=== PATIENT | male | born 1980 | race Caucasian/White ===

== ENCOUNTER 2017-10-23 19:12 | Emergency (ER) | payer OTHER ==
[~2017-10-23] VITALS: Ht 170.2 cm; Wt 49.6 kg
[~2017-10-23 19:12] MED LIST: SITA1TBM4 PO
[2017-10-23 20:25] LABS: HEMATOCRIT 46.8 % (39.2-51.8); HEMOGLOBIN 15.6 g/dL (13.7-18.0); WHITE BLOOD COUNT 8.1 x10^3/uL (3.4-10)
[2017-10-23 20:26] LABS: PH, VENOUS 7.427 pH (7.320-7.420)
[2017-10-23] MEDS ORDERED: SODIUM CHLORIDE 0.9% 1,000ML IVBOLUS ONE (20:30)
[2017-10-23 20:37] LABS: BLOOD UREA NITROGEN 15 mg/dL (7-18)
[2017-10-23 20:40] LABS: ASPARTATE AMINO TRANSFERASE 26 U/L (15-37)
[2017-10-23] MEDS ORDERED: INSULIN REGULAR 100 UNITS/ML, 3ML VIAL ONE (20:54)
[2017-10-23] MEDS ORDERED: INSULIN REGULAR 100 UNITS/ML, 3ML VIAL SQ-INSULIN ONE (21:00)
[2017-10-23 22:09] VITALS: BP 112/62
== END 2017-10-23 22:39 | disposition home or self-care (01) ==
LOC: ED 22:06
DX: E11.65 Type 2 diabetes mellitus with hyperglycemia (principal); F17.200 Nicotine dependence, unspecified, uncomplicated
CPT/HCPCS: 36415; 71010; 80053; 81003; 82010; 82803; 82962; 85025; 93005; 96361; 96374; 99285; J7030

== ENCOUNTER 2017-11-29 10:45 | Emergency (ER) | payer SELFPAY | END 2017-11-29 11:38 | disposition left against medical advice (07) | LOC: ED 11:32 | DX: Z53.21 Procedure and treatment not carried out due to patient leaving prior to being seen by health care provider (principal) ==

== ENCOUNTER 2019-04-29 07:56 | Emergency (ER) | payer BC ==
[~2019-04-29] VITALS: Ht 170.2 cm; Wt 51.2 kg
[2019-04-29] MEDS ORDERED: DIPH,PERTUSS(ACELL),TET VAC/PF 0.5 ML IM-VACC ONE ×2 (08:30→09:44)
[2019-04-29] MEDS ORDERED: LIDOCAINE-MPF 1%, 5ML INFIL ONE (08:30)
--- NOTE | 2019-04-29 08:52 | NUR ---
TO ROOM AT THIS TIME
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
[2019-04-29 09:17] LABS: BASOPHILS # (AUTO) 0.02 x10^3/uL (0-0.1); BASOPHILS % (AUTO) 0 % (0-1); EOSINOPHILS # (AUTO) 0.17 x10^3/uL (0-0.4); EOSINOPHILS % (AUTO) 2 % (1-7); LYMPHOCYTES # (AUTO) 1.44 x10^3/uL (1-3.4); LYMPHOCYTES % (AUTO) 19 % (22-44); MD NO; MEAN CORPUSCULAR HEMOGLOBIN 32.1 pg (27.5-34.5); MEAN CORPUSCULAR HGB CONC 32.7 g/dL (33.2-36.2); MEAN CORPUSCULAR VOLUME 98.4 fL (81-97); MONOCYTES # (AUTO) 0.53 x10^3/uL (0.2-0.8); MONOCYTES % (AUTO) 7 % (2-9); NEUTROPHILS % (AUTO) 72 % (42-75); PLATELET COUNT 238 x10^3/uL (130-400); RED CELL DISTRIBUTION WIDTH 14.3 % (9.4-14.8)
--- NOTE | 2019-04-29 09:22 | NUR ---
CLARIFIED PLAN WITH PROVIDER: TO WAIT FOR LABS BEFORE CT THEN TO PERFORMS WOUND CARE
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
[2019-04-29 09:31] LABS: ANION GAP 8 mmol/L (5-15); CALCIUM 9.2 mg/dL (8.5-10.1); CHLORIDE 102 mmol/L (98-107); CREATININE 1.07 mg/dL (0.7-1.3)
[2019-04-29] MEDS ORDERED: LIDOCAINE-MPF 1%, 5ML ONE (09:44)
--- NOTE | 2019-04-29 09:51 | NUR ---
TO CT ALL WOUND CARE SUPPLIES READY PATIENT REMAIN IN NAD, BLEEDING CONTROLLED TDAP BOOSTER ADMINISTERED PER EMAR
[2019-04-29] MEDS ORDERED: OMNIPAQUE 350 MG/ML, 75ML BOTTLE ONE (10:15)
--- NOTE | 2019-04-29 10:31 | NUR ---
WOUND ANESTITIZED BY PROVIDER-AFTER 10 MINUTES TO DWELL WOUND CLEANSED THEN SUTURED BY Sampson JOHNSON
[2019-04-29 11:32] VITALS: BP 149/74
== END 2019-04-29 11:35 | disposition home or self-care (01) ==
LOC: ED 11:15
DX: S21.111A Laceration without foreign body of right front wall of thorax without penetration into thoracic cavity, initial encounter (principal); Y04.0XXA Assault by unarmed brawl or fight, initial encounter; Y93.89 Activity, other specified; Y92.89 Other specified places as the place of occurrence of the external cause; Y99.8 Other external cause status
CPT/HCPCS: 12032; 36415; 71046; 71260; 80048; 85025; 90471; 90715; 99284; Q9967

== ENCOUNTER 2019-05-24 09:50 | Emergency (ER) | payer OTHER ==
[~2019-05-24] VITALS: Ht 170.2 cm; Wt 52.2 kg
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
--- NOTE | 2019-05-24 10:47 | NUR ---
PT TAKEN TO CT
--- NOTE | 2019-05-24 11:01 | NUR ---
PT BACK FROM CT, RESTING ON [facility]. NO NEEDS AT THIS TIME
--- NOTE | 2019-05-24 11:46 | NUR ---
pt back from imaging
[2019-05-24 11:53] VITALS: BP 115/70
--- NOTE | 2019-05-24 11:55 | NUR ---
PT RESTING ON GURNEY, NO C/O PAIN AT THIS TIME. PT DENIES NEEDS
--- NOTE | 2019-05-24 12:46 | NUR ---
THIS RN WENT TO DISCHARGE PT, PT NOT IN ROOM AND BELONGINGS ARE NOT FOUND IN ROOM. FINE WIRE DRAWER MADE AWARE, PT SCRIPT LEFT WITH FINE WIRE DRAWER.
== END 2019-05-24 12:50 | disposition home or self-care (01) ==
LOC: ED 12:11
DX: S16.1XXA Strain of muscle, fascia and tendon at neck level, initial encounter (principal); S09.8XXA Other specified injuries of head, initial encounter; S29.012A Strain of muscle and tendon of back wall of thorax, initial encounter; R51 Headache; E11.9 Type 2 diabetes mellitus without complications; V89.0XXA Person injured in unspecified motor-vehicle accident, nontraffic, initial encounter; Y93.89 Activity, other specified; Y99.8 Other external cause status; Y92.410 Unspecified street and highway as the place of occurrence of the external cause
CPT/HCPCS: 70450; 71046; 72072; 72125; 99284

== ENCOUNTER 2019-06-06 16:02 | Emergency (ER) | payer BC, OTHER ==
[~2019-06-06] VITALS: Ht 162.6 cm; Wt 50.3 kg
[2019-06-06 16:12] VITALS: BP 136/88
== END 2019-06-06 16:55 | disposition home or self-care (01) ==
LOC: ED 16:29
DX: R07.89 Other chest pain (principal); F17.200 Nicotine dependence, unspecified, uncomplicated; Z48.01 Encounter for change or removal of surgical wound dressing
CPT/HCPCS: 99281